=== PATIENT | male | born 1990 | race Caucasian/White ===

== ENCOUNTER 2020-09-14 11:07 | Day surgery (SDC) | payer OTHER ==
[2020-09-12 10:11] VITALS: BMI 28.6
[~2020-09-14 11:07] MED LIST: LACTATED RINGERS 1,000 ML IV SCH
[2020-09-14 11:33] VITALS: RESP 16; TEMP 98.3
[2020-09-14] MEDS ORDERED: PROPOFOL 10 MG/ML 20 ML VIAL IV ONE (12:28)
--- NOTE | 2020-09-14 13:00 | P.PCN ---
Date of Procedure: 09/14/20 Description of Procedure: BRIEF HISTORY: Patient is a 29-year-old male seen for outpatient colonoscopy for evaluation of change in bowel habits. Patient been seen in the GI clinic with a constellation of symptoms including frequent lower abdominal and pelvic pain described as sharp and cramping. Occasionally the pain will be triggered by passing flatus or bowel movements but sometimes is improved with bowel movements and has happened in the absence of these events even while he was driving his car. He reports that there is been a change in the quality of his bowel movements. PROCEDURE PERFORMED: Colonoscopy with biopsy. PREOPERATIVE DIAGNOSIS: Change in bowel habits, altered bowel function. ESTIMATED BLOOD LOSS: Minimal. IV sedation per Anesthesia. PROCEDURE: After informed consent was obtained, the patient, was brought into the endoscopy unit. IV sedation was administered by Anesthesia under continuous monitoring. Digital rectal examination was normal, external skin tag noted on perianal evaluation was definitive fissure seen. Initially the Olympus CF-190 flexible v ideo colonoscope was then inserted in the rectum, gradually advanced into the cecum without any difficulty. Careful examination was performed as the scope was gradually being withdrawn. Ileocecal valve and the appendiceal orifice were visualized and appeared normal. Prep was excellent. Mucosa of the cecum, ascending colon, transverse colon, descending colon, sigmoid colon, and rectum appeared normal, and the terminal ileum appeared normal., With random biopsies taken of the terminal ileum, right colon and left colon. Diminutive 1 mm ascending colon polyp removed with cold forcep polypectomy Retroflexion was performed in the rectum and no lesions were seen. The patient tolerated the procedure well. IMPRESSION: Normal-appearing colon from rectum to cecum and normal appearing terminal ileum, with random biopsies of the right colon, left colon and terminal ileum. Diminutive ascending colon polyp removed with cold forcep polypectomy. RECOMMENDATIONS: Findings of this examination were discussed with the patient .and his family. Okay to resume the medication. continue current medical management. Follow-up in the GI clinic as scheduled. Await pathology from biopsies and polypectomy. Further recommendations pending pathology and computed tomography scan scheduled for tomorrow.
[2020-09-14 13:24] VITALS: BP 110/56; PULSE 75
== END 2020-09-14 13:37 | disposition home or self-care (01) ==
LOC: ORWHC2ENDO 11:07
PROVIDERS: ATTEND Internal Medicine
DX: D12.2 Benign neoplasm of ascending colon (principal); R19.4 Change in bowel habit; R10.30 Lower abdominal pain, unspecified; Z79.899 Other long term (current) drug therapy; Z88.0 Allergy status to penicillin; Z91.040 Latex allergy status
CPT/HCPCS: 88305; 45380; J2704

== ENCOUNTER → 2020-09-15 | Outpatient (CLI) | payer OTHER ==
--- NOTE | 2020-09-15 15:31 | CT ---
EXAMINATION TYPE: CT abdomen pelvis wo/w con DATE OF EXAM: 09/15/2020 COMPARISON: None HISTORY: Pelvic and hip pain x 3 months with changes in bowel habits. CT DLP: 952.6 mGycm CONTRAST: CT scan of the abdomen and pelvis is performed with Oral Contrast and without and with IV Contrast, p atient injected with 100 mL of Isovue 300. FINDINGS: LUNG BASES-: No visible nodule. No infiltrate. LIVER/GB: No calcified gallstones. No space occupying hepatic lesion. Biliary tree is of normal ca liber. PANCREAS: No inflammation. No distinct mass. SPLEEN: No splenic enlargement. No lesion seen. ADRENALS: No nodule. No thickening. KIDNEYS/BLADDER: No hydronephrosis. No nephrolithiasis. No distinct renal mass. Urinary bladder g rossly unremarkable. BOWEL: Normal appendix. Normal bowel caliber. No inflammation. GENITAL ORGANS: No gross abnormality. LYMPH NODES: No greater than 1cm abdominal or pelvic lymph nodes are appreciated. AORTA: No significant abnormality. OSSEOUS STRUCTURES: No significant abnormality is seen. OTHER: No significant additional abnormality is seen. IMPRESSION: 1. No distinct abnormality identified to account for the patient's symptoms.
== END | disposition home or self-care (01) ==
LOC: RADCTMAIN 13:13
PROVIDERS: ATTEND Internal Medicine
DX: R10.30 Lower abdominal pain, unspecified (principal)
CPT/HCPCS: 74178; Q9967 ×2

== ENCOUNTER → 2020-09-26 | Outpatient (CLI) | payer OTHER ==
--- NOTE | 2020-09-26 16:32 | XR ---
EXAMINATION TYPE: XR lumbar spine 2 or 3V DATE OF EXAM: 09/26/2020 CLINICAL HISTORY: Back pain. Pain in bilateral hips radiating into back and legs. TECHNIQUE: Frontal and lateral images of the lumbar spine are obtained. COMPARISON: 09/15/2020 CT abdomen pelvis FINDINGS: There are 5 lumbar type vertebral bodies identified. The lumbar spine shows satisfactory alignment without evidence of acute fracture or dislocation. No spondylolisthesis. Vertebral body hei ghts and disk space heights are within normal limits. The overlying soft tissue appears unremarkabl e. IMPRESSION: No acute fracture or dislocation is seen in the lumbar spine.
--- NOTE | 2020-09-26 16:36 | XR ---
EXAMINATION TYPE: XR thoracic spine complete DATE OF EXAM: 09/26/2020 CLINICAL HISTORY: Back pain. TECHNIQUE: Frontal, lateral, and swimmer's view of thoracic spine are obtained. COMPARISON: None. FINDINGS: Thoracic spine show satisfactory alignment without evidence of acute fracture or dislocatio n. Vertebral body heights and disc space heights are preserved. Visualized ribs are unremarkable. IMPRESSION: No acute fracture or dislocation is seen in the thoracic spine.
== END | disposition home or self-care (01) ==
LOC: RADXRMAIN 15:04
PROVIDERS: ATTEND Nurse Practitioner Family
DX: M54.9 Dorsalgia, unspecified (principal)
CPT/HCPCS: 72072; 72100

== ENCOUNTER → 2020-10-13 | Outpatient (CLI) | payer OTHER ==
--- NOTE | 2020-10-13 11:02 | MR ---
EXAMINATION TYPE: MR lumbar spine wo/w con DATE OF EXAM: 10/13/2020 COMPARISON: Plain film 09/26/2020, CT abdomen pelvis dated 09/15/2020 HISTORY: Back pain for 4 months. Patient indicates pain radiating into buttocks and thighs bilaterall y. TECHNIQUE: Multiplanar, multisequence images of the lumbar spine were acquired utilizing 7.5 mL intravenous Gada vist gadolinium contrast. L1-L2: Normal disc appearance without desiccation. No herniation, protrusion or disc bulging. No ca nal stenosis is present. Foramina are patent bilaterally. L2-L3: Normal disc appearance without desiccation. No herniation, protrusion or disc bulging. No ca nal stenosis is present. Foramina are patent bilaterally. L3-L4: Normal disc appearance without desiccation. No herniation, protrusion or disc bulging. No ca nal stenosis is present. Foramina are patent bilaterally. L4-L5: Normal disc appearance without desiccation. No herniation, protrusion or disc bulging. No ca nal stenosis is present. Foramina are patent bilaterally. L5-S1: Normal disc appearance without desiccation. No herniation, protrusion or disc bulging. No ca nal stenosis is present. Foramina are patent bilaterally. Lumbar segments are intact. No paraspinal masses are identified. Conus medullaris has a normal appe arance. Lumbar vertebral bodies show preserved height and alignment, bone marrow signal. No abnormal enhancement following contrast administration. IMPRESSION: Normal pre and postcontrast lumbar spine MRI
== END | disposition home or self-care (01) ==
LOC: RADMRIMAIN 08:33
PROVIDERS: ATTEND Nurse Practitioner Family
DX: M54.9 Dorsalgia, unspecified (principal)
CPT/HCPCS: 72158; A9585

== ENCOUNTER → 2021-03-16 | Outpatient (CLI) | payer OTHER ==
--- NOTE | 2021-03-16 14:23 | MR ---
EXAMINATION TYPE: MR knee LT wo con DATE OF EXAM: 03/16/2021 COMPARISON: None HISTORY: L knee pain TECHNIQUE: Multiplanar, multisequence imaging of the left knee is performed without IV contrast. FINDINGS: MEDIAL MENISCUS: Anterior and posterior horns are intact without tear. LATERAL MENISCUS: Anterior and posterior horns are intact without tear. CRUCIATE LIGAMENTS: The ACL is not visualized and is compatible with nonacute rupture. PCL is intact. COLLATERAL LIGAMENTS: The medial collateral ligament and lateral collateral ligament complex are inta ct and unremarkable. EXTENSOR MECHANISM: Visualized quadriceps and patellar tendons are intact. EFFUSION: No significant suprapatellar joint effusion. POPLITEAL CYST: No popliteal/roman cyst. TRICOMPARTMENT SPACES: Intact CARTILAGE: Intact BONE MARROW SIGNAL: No focal abnormal marrow signal is appreciated. OTHER: No additional significant abnormality is appreciated. IMPRESSION: Nonacute rupture of the ACL.
== END | disposition home or self-care (01) ==
LOC: RADMRIMAIN 12:44
PROVIDERS: ATTEND Orthopaedic Surgery
DX: S83.512A Sprain of anterior cruciate ligament of left knee, initial encounter (principal); X58.XXXA Exposure to other specified factors, initial encounter

== ENCOUNTER → 2021-04-26 | Outpatient (CLI) | payer OTHER ==
[2021-04-26 13:21] LABS: Basophils % (A) 0 %; Eosinophils # (A) 0.1 k/uL (0-0.7); Eosinophils % (A) 1 %; HCT 44.9 % (39.0-53.0); HGB 15.5 gm/dL (13.0-17.5); Lymphocytes # (A) 1.4 k/uL (1.0-4.8); Lymphocytes % (A) 22 %; MCH 29.6 pg (25.0-35.0); MCHC 34.5 g/dL (31.0-37.0); MCV 85.7 fL (80.0-100.0); Mean Platelet Volume 6.9; Monocytes # (A) 0.4 k/uL (0-1.0); Monocytes % (A) 7 %; Neutrophils # (A) 4.4 k/uL (1.3-7.7); Neutrophils % (A) 68 %; Platelet Count 235 k/uL (150-450); RBC 5.24 m/uL (4.30-5.90); RDW 11.9 % (11.5-15.5); WBC 6.5 k/uL (3.8-10.6)
[2021-04-26 13:23] LABS: Potassium 4.3 mmol/L (3.5-5.1)
== END | disposition home or self-care (01) ==
LOC: LABPAT 11:20
PROVIDERS: ATTEND Orthopaedic Surgery
DX: Z01.812 Encounter for preprocedural laboratory examination (principal); S83.511A Sprain of anterior cruciate ligament of right knee, initial encounter; X58.XXXA Exposure to other specified factors, initial encounter
CPT/HCPCS: 36415; 80051; 85025

== ENCOUNTER 2021-05-03 08:00 | Day surgery (SDC) | payer OTHER ==
[2021-05-02 09:21] VITALS: BMI 25.9
--- NOTE | 2021-05-02 17:54 | HP ---
HISTORY AND PHYSICAL DATE OF SURGERY: 05/03/2021 Kannan Sterling is a 30-year-old patient seen with left knee pain and instability, history of ACL tear. We discussed options. He elected to proceed with left knee arthroscopy, including allograft ACL reconstruction. Consent was obtained. PAST MEDICAL HISTORY: Noncontributory. PAST SURGICAL HISTORY: Colonoscopy. DAILY MEDICATIONS: None. ALLERGIES: PENICILLIN. SOCIAL HISTORY: He denies tobacco use. PHYSICAL EVALUATION OF THE LEFT KNEE: Range of motion is zero to 130. Tenderness, medial joint line. Positive medial Caitlyn's. Plus 2/3 Colten. No endpoint. Positive pivot shift. Collateral ligaments are stable. Distal neurovascular exam intact. Radiographs of the left knee revealed no osseous abnormality. MRI left knee revealed a complete ACL tear. IMPRESSION: Internal derangement of left knee with ACL tear. PLAN: Left knee arthroscopy with allograft ACL reconstruction and debridement. MMODL / IJN: [id number] /
[~2021-05-03 08:00] MED LIST changes: +CLINDAMYCIN 900 MG in DEXTROSE 5% IN WATER 50 ML IVPB PRN; +DEXAMETHASONE SOD PHOSPHATE 4 MG/ML 1 ML VIAL IV ONE; +LIDOCAINE 1% (10MG/ML) FOR IV START INTRADERMA PRN; +METOCLOPRAMIDE 5 MG/ML 2 ML VIAL IVP PRN; +MIDAZOLAM 2 MG/2 ML VIAL IV PRN; +ONDANSETRON 4 MG/2 ML VIAL IVP ONE
[2021-05-03 08:26] VITALS: TEMP 98.1
[2021-05-03] MEDS ORDERED: LIDOCAINE 1% INJ 10MG/ML (20 ML MDV) ONE (09:05)
[2021-05-03] MEDS ORDERED: SUCCINYLCHOLINE CHLORIDE 100 MG/5 ML SYR IV ONE (09:05)
[2021-05-03] MEDS ORDERED: LABETALOL 5 MG/ML VIAL MDV ONE (09:05)
[2021-05-03] MEDS ORDERED: ROCURONIUM 10 MG/ML (5 ML VIAL) IV ONE (09:05)
[2021-05-03] MEDS ORDERED: MIDAZOLAM 2 MG/2 ML VIAL ONE (09:05)
[2021-05-03] MEDS ORDERED: NEOSTIGMINE 1 MG/ML 10 ML VIAL ONE (09:05)
[2021-05-03] MEDS ORDERED: .fentaNYL (PF) 50 MCG/ML 2 ML AMP ONE (09:05)
[2021-05-03] MEDS ORDERED: PROPOFOL 10 MG/ML 20 ML VIAL IV ONE (09:05)
[2021-05-03] MEDS ORDERED: GLYCOPYRROLATE 0.2 MG/ML 2 ML VIAL ONE (09:05)
[2021-05-03] MEDS ORDERED: BUPIVACAINE (PF) 0.25% 30 ML VIAL SQ ONE ×2 (09:50→10:57)
[2021-05-03] MEDS ORDERED: LACTATED RINGERS 1,000 ML IV ONE (10:57)
--- NOTE | 2021-05-03 11:25 | P.OP ---
Date of Procedure: 05/03/21 Preoperative Diagnosis: Internal derangement left knee Postoperative Diagnosis: 1. ACL tear left knee 2. Medial meniscal tear left knee 3. Reactive synovitis medial, lateral and suprapatellar compartments left knee Procedure(s) Performed: 1. Left knee arthroscopy with allograft ACL reconstruction 2. Left knee arthroscopy with partial medial meniscectomy 3. Left knee arthroscopy with partial synovectomy medial, lateral and suprapatellar compartments Implants: 14.75 Arthrex a lock anchor 2- Arthrex Endobutton Anesthesia: NILE local Surgeon: Wilver Gray Finished Cigar Maker #1: Reno Bedoya Estimated Blood Loss (ml): 15 Pathology: none sent Condition: stable Disposition: PACU Indications for Procedure: 30-year-old patient seen with progressive left knee pain/instability. We discussed treatment options. He elected to proceed with arthroscopy to include allograft ACL reconstruction. Operative Findings: See description of procedure Description of Procedure: Patient was taken to the operative suite. Patient underwent a general anesthetic by the department of anesthesia. Patient was given preoperative antibiotics. The left lower extremity was placed in a well-padded arthroscopic leg cooper. The left leg was prepped and draped in the normal sterile orthopedic fashion. A lateral parapatellar and suprapatellar incision was made. Trochars were inserted. Arthroscopy was initiated. Suprapatellar pouch revealed diffuse thick reactive synovitis. The patellofemoral joint appeared to articulate congruently. There was no significant chondromalacia present.. The scope was guided into the medial gutter. No loose bodies or plica were identified. The scope was then guided into the medial compartment. A medial parapatellar incision was made. Trocar inserted followed by probe. There was a small radial tear involving the anterior horn/midbody medial meniscus. There was thick reactive synovitis. There was no chondromalacia. I performed a pa rtial medial meniscectomy getting down to stable meniscal tissue. I performed a partial synovectomy decompressing the reactive synovitis. The shaver was removed. The residual meniscus was stable. There was good decompression of the synovitis. Scope and probe were then guided into the intercondylar notch. There was complete absence of the anterior cruciate ligament. The posterior cruciate ligament was intact. At this point the graft was opened on the back field. Anderson GOEL began preparing that graft for implantation. The scope and probe were then guided into lateral compartment. The lateral meniscus was probed and found to be stable. There was no chondromalacia. There was thick reactive synovitis anteriorly. I introduced a motorized shaver and I performed a partial synovectomy. The shaver was removed. There was good decompression of the synovitis. I now guided the scope back into the intercondylar notch. I performed a notchplasty. I debrided some scar tissue in the area. With the assistance of Anderson GOEL I now created a femoral tunnel. I now with the assistance of Anderson GOEL created a tibial tunnel. Once it was completed the graft was now brought to the operative field. I now shuttled the femoral side the graft into the femoral tunnel visually flipping the Endobutton and then I shuttled the graft into the bone tunnel. We now with this is Anderson GOEL shuttle the tibial side of the graft into the tibial tunnel. We now put stress through the graft and noted good positioning of the graft. I noted leg into full extension and I secured the tibial side the graft with a Endobutton and then I backed up our internal brace which was incorporated into the graft with a 4.75 Arthrex swivel lock anchor. All residual sutures were clipped. We noted good fixation of both the button and the internal brace via the Arthrex a lock. We now kept the knee into full extension and I held that there while Anderson GOEL tensioned the femoral side the graft appropriately. We now evaluated the ACL graft appeared be very well-positioned with good stability intraoperatively. I now took one look into the medial lateral compartments and noted no residual debris there. The scope was in guided back into the suprapatellar compartment. I introduced a motorized shaver into the super patellar compartment and debrided some residual bone fragments and performed a partial synovectomy and compressed thick reactive synovitis. I now took one more look around the entire knee, no residual debris. The joint was infiltrated with .25% Marcaine. we repaired the portal sites and the mini medial tibial incision utilizing nylon suture. Sterile dressings were applied. The patient was placed into a GAVIN hose. No tourniquet was utilized. I placed the left lower extremity into a knee immobilizer. The patient was awakened, transferred to a bed and taken to recovery stable satisfactory condition. Anderson GOEL assisted with this procedure.
[2021-05-03 11:30] VITALS: RESP 16
[2021-05-03] MEDS: HYDROmorphone 0.5 MG/0.5 ML SYRINGE IVP PRN ×2 (11:32→11:50)
[2021-05-03] MEDS ORDERED: KETOROLAC 30 MG/ML 1 ML VIAL ONE (11:36)
[2021-05-03] MEDS ORDERED: KETOROLAC 15 MG/ML 1 ML VIAL IVP ONE (11:38)
[2021-05-03] MEDS ORDERED: HYDROcodone/APAP 7.5-325MG 1 EACH TAB PO ONE (12:16)
[2021-05-03] MEDS ORDERED: HYDROcodone/APAP 7.5-325MG 1 EACH TAB ONE (12:16)
[2021-05-03 12:37] VITALS: BP 108/63; PULSE 59
== END 2021-05-03 13:19 | disposition home or self-care (01) ==
LOC: OR 08:00
PROVIDERS: ATTEND Orthopaedic Surgery
DX: M23.612 Other spontaneous disruption of anterior cruciate ligament of left knee (principal); M23.204 Derangement of unspecified medial meniscus due to old tear or injury, left knee; M65.862 Other synovitis and tenosynovitis, left lower leg; Z98.890 Other specified postprocedural states; Z88.0 Allergy status to penicillin; Z91.040 Latex allergy status
CPT/HCPCS: 29881; 29888; C1713 ×4; C1762; J2250; J1100; J2710; J2405; J2001; J3010; J1885; J0330; J2704; J1170

== ENCOUNTER 2021-07-06 10:23 | Emergency (ER) | payer OTHER ==
[2021-07-06 10:36] VITALS: TEMP 98.5
--- NOTE | 2021-07-06 11:53 | ED ---
General Adult HPI - General Chief complaint: Abdominal Pain Stated complaint: abd pain Time Seen by Provider: 07/06/21 10:35 Source: patient, RN notes reviewed, old records reviewed Mode of arrival: ambulatory Limitations: no limitations - History of Present Illness Initial comments: This is a 30-year-old male who presents emergency Department complaining of rectal pain for one year. Patient states it comes and goes and usually starts with the bowel movement. Patient states when it occurs the pain is excruciating. Patient states she's been followed up multiple times with primary medical care doctor and had a colonoscopy throughout the ER and they have not found a reason. Patient denies any bumps or lumps. Patient states the pain is not changed over that year it just gets worse at times. Patient denies diarrhea. Patient denies being constipated Patient states his caliber of stool is extremely small so he does have to bear down to have a bowel movement. Patient denies any abdominal pain patient denies any fever chills. Patient denies any injury. - Related Data Home Medications Medication Instructions Recorded Confirmed Docusate [Colace] 100 mg PO HS PRN 05/02/21 05/03/21 Previous Rx's Medication Instructions Recorded HYDROcodone/APAP 7.5-325MG [[place] 1 each PO Q6HR PRN #21 tab 05/03/21 7.5] Ibuprofen 800 mg PO Q8H PRN #40 tab 05/03/21 Allergies Allergy/AdvReac Type Severity Reaction Status Date / Time Penicillins Allergy Severe Anaphylaxis Verified 07/06/21 10:36 latex Allergy Unknown Rash/Hives Verified 07/06/21 10:36 Review of Systems ROS Statement: Those systems with pertinent positive or pertinent negative responses have been documented in the HPI. ROS Other: All systems not noted in ROS Statement are negative. Past Medical History Past Medical History: No Reported History Additional Past Medical History / Comment(s): rectal pain, loose stools. History of Any Multi-Drug Resistant Organisms: None Reported Past Surgical History: No Surgical Hx Reported Additional Past Anesthesia/Blood Transfusion Reaction / Comment(s): no anesthesia hx Past Psychological History: No Psychological Hx Reported Smoking Status: Former smoker Past Alcohol Use History: None Reported Past Drug Use History: Marijuana - Past Family History Mother Family Medical History: No Reported History General Exam - General Exam Comments Initial Comments: GENERAL Patient is well-developed and well-nourished. Patient is in no acute distress. EYES Patient's pupils are equal and round. Extraocular motion is intact SKIN Unremarkable NEURO The patient is alert and oriented 3 PYSCH Patient has normal interpersonal interactions. Normal rectal exam was done at this time since he was not having pain currently. Limitations: no limitations Course Vital Signs 07/06/21 10:34 Temperature 98.5 F Pulse Rate 85 Respiratory 20 Rate Blood Pressure 124/68 O2 Sat by Pulse 99 Oximetry Disposition Clinical Impression: Chronic rectal pain Disposition: HOME SELF-CARE Instructions (If sedation given, give patient instructions): Rectal Pain (ED) Additional Instructions: Patient should take Motrin 600 when necessary for pain. Patient states that her fiber twice a day. Patient should follow-up with colorectal specialist and possibly the pain clinic. Is patient prescribed a controlled substance at d/c from ED?: No Referrals: Lily Tovar MD [Primary Care Provider] - 1-2 days Time of Disposition: 11:53
[2021-07-06 12:05] VITALS: BP 153/71; PULSE 72; RESP 18
== END 2021-07-06 12:11 | disposition home or self-care (01) ==
LOC: EC 10:23
DX: K62.89 Other specified diseases of anus and rectum (principal); Z87.891 Personal history of nicotine dependence; Z88.0 Allergy status to penicillin; Z91.040 Latex allergy status
CPT/HCPCS: 99283

== ENCOUNTER 2021-07-09 20:24 | Emergency (ER) | payer OTHER ==
[2021-07-09 21:05] VITALS: TEMP 98.8
[2021-07-10 00:48] LABS: Basophils # (A) 0.1 k/uL (0-0.2); Basophils % (A) 0 %; Eosinophils # (A) 0.1 k/uL (0-0.7); Eosinophils % (A) 1 %; HCT 43.5 % (39.0-53.0); HGB 14.8 gm/dL (13.0-17.5); Lymphocytes # (A) 2.1 k/uL (1.0-4.8); Lymphocytes % (A) 18 %; MCH 29.9 pg (25.0-35.0); MCHC 34.1 g/dL (31.0-37.0); MCV 87.7 fL (80.0-100.0); Mean Platelet Volume 6.6; Monocytes # (A) 0.9 k/uL (0-1.0); Monocytes % (A) 7 %; Neutrophils # (A) 8.7 k/uL (1.3-7.7); Neutrophils % (A) 72 %; Platelet Count 243 k/uL (150-450); RBC 4.96 m/uL (4.30-5.90); RDW 11.9 % (11.5-15.5); WBC 12.1 k/uL (3.8-10.6)
--- NOTE | 2021-07-10 01:13 | CT ---
EXAMINATION TYPE: CT pelvis w con DATE OF EXAM: 07/10/2021 COMPARISON: 09/15/2020 HISTORY: pain CT DLP: 678.1 mGycm Automated exposure control for dose reduction was used. CONTRAST: Performed with IV Contrast, patient injected with 100 mL of Isovue 300. Images obtained from the iliac crest to the floor of the pelvis with IV contrast. The appendix appears normal. There is no free fluid in the pelvis. Bladder distends smoothly. There i s no evidence of pelvic mass. Prostate appears normal. There is some mild thickening on the right eusebio e of the anus that could be inflammatory process. No discrete fluid collection. There is no inguinal hernia. There is no pelvic lymphadenopathy. The bony pelvis is intact. Hip joint s are intact. Sacroiliac joints appear normal. IMPRESSION: Mild right-sided perianal thickening consistent with phlegmon or inflammatory process. No abscess. Th is appears new compared to old exam.
[2021-07-10 01:14] LABS: African American GFR (CKD) >90 (>60 ml/min/1.73 sqM); Anion Gap 11 mmol/L; Blood Urea Nitrogen 16 mg/dL (9-20); Calcium 9.9 mg/dL (8.4-10.2); Carbon Dioxide 25 mmol/L (22-30); Chloride 101 mmol/L (98-107); Glucose 97 mg/dL (74-99); Non-African American GFR(CKD) >90 (>60 ml/min/1.73 sqM); Potassium 3.9 mmol/L (3.5-5.1); Sodium 137 mmol/L (137-145)
[2021-07-10] MEDS ORDERED: CLINDAMYCIN 150 MG CAP PO STA (01:49)
[2021-07-10 02:10] VITALS: BP 127/63; PULSE 123; RESP 18
--- NOTE | 2021-07-10 03:03 | ED ---
General Adult HPI - General Chief complaint: Recheck/Abnormal Lab/Rx Stated complaint: Abd. Pain Time Seen by Provider: 07/09/21 23:30 Source: patient Mode of arrival: wheelchair Limitations: no limitations - History of Present Illness Initial comments: 's patient is a 30-year-old man who presents with complaint he is having what he is describing as severe, sharp, rectal pains. The patient states this is been going on intermittently back to a year ago or so. He is not identify any inciting trauma. The patient does state that he was seen here 3-4 days ago, they were not able to find the problem, and he was sent home to follow with a colorectal surgeon. The patient notes that since leaving he has developed some swelling adjacent to the anus. No systemic symptoms, no fever or chills. No palpitations, chest pain or dyspnea. The patient denies abdominal pains. He does note that he has developed a small swelling in the right groin area. The patient does state that he tried taking a Tuttle that he had left over from a knee surgery which may have helped a tiny bit but he still noticed the pain even with the medication. Onset/Timin -: year(s) Radiation: non-radiation Quality: sharp Consistency: intermittent Improves with: none Worsens with: other (Sitting) Associated Symptoms: denies other symptoms Treatments Prior to Arrival: other (Tuttle) - Related Data Home Medications Medication Instructions Recorded Confirmed Docusate [Colace] 100 mg PO HS PRN 05/02/21 05/03/21 Previous Rx's Medication Instructions Recorded HYDROcodone/APAP 7.5-325MG [[place] 1 each PO Q6HR PRN #21 tab 05/03/21 7.5] Ibuprofen 800 mg PO Q8H PRN #40 tab 05/03/21 Clindamycin [Cleocin] 300 mg PO Q6H #28 capsule 07/10/21 Nitroglycerin Oint [Nitro-Bid Oint] 0.5 inch TRANSDERM TID #14 packet 07/10/21 Allergies Allergy/AdvReac Type Severity Reaction Status Date / Time Penicillins Allergy Severe Anaphylaxis Verified 07/09/21 21:05 latex Allergy Unknown Rash/Hives Verified 07/09/21 21:05 Review of Systems ROS Statement: Those systems with pertinent positive or pertinent negative responses have been documented in the HPI. ROS Other: All systems not noted in ROS Statement are negative. Constitutional: Denies: fever, chills Respiratory: Denies: cough, dyspnea Cardiovascular: Denies: chest pain, palpitations, syncope Gastrointestinal: Denies: abdominal pain, nausea, vomiting, diarrhea, constipation Genitourinary: Denies: dysuria, hematuria, testicular pain, testicular mass Musculoskeletal: Denies: back pain Skin: Denies: rash Neurological: Denies: headache Past Medical History Past Medical History: No Reported History Additional Past Medical History / Comment(s): rectal pain, loose stools. History of Any Multi-Drug Resistant Organisms: None Reported Past Surgical History: No Surgical Hx Reported Additional Past Anesthesia/Blood Transfusion Reaction / Comment(s): no anesthesia hx Past Psychological History: No Psychological Hx Reported Smoking Status: Former smoker Past Alcohol Use History: None Reported Past Drug Use History: Marijuana - Past Family History Mother Family Medical History: No Reported History General Exam Limitations: no limitations General appearance: alert, in no apparent distress Head exam: Present: atraumatic, normocephalic Respiratory exam: Present: normal lung sounds bilaterally. Absent: respiratory distress, wheezes, rales, rhonchi, stridor Cardiovascular Exam: Present: regular rate, normal rhythm, normal heart sounds. Absent: systolic murmur, diastolic murmur, rubs, gallop GI/Abdominal exam: Present: soft. Absent: distended, tenderness, guarding, rebound, rigid, mass Rectal exam: Present: other (Onto the right of the anus there is an area of induration with erythema and warmth consistent with possible early abscess versus cellulitis.) Extremities exam: Present: normal inspection, normal capillary refill. Absent: pedal edema, calf tenderness Back exam: Present: normal inspection Neurological exam: Present: alert, normal gait Skin exam: Present: warm, dry, erythema, other (See above). Absent: intact Course Vital Signs 07/09/21 07/10/21 21:00 00:33 Temperature 98.8 F Pulse Rate 100 115 H Respiratory 18 20 Rate Blood Pressure 125/72 151/77 O2 Sat by Pulse 100 99 Oximetry Medical Decision Making - Medical Decision Making This patient is 30-year-old man with severe intermittent rectal pain going back a year. Discussed with the patient that there is currently an infection which we will treat and have him follow with the colorectal specialist. No identifiab le abscess currently. Discussed that I do not find an etiology for the chronic pain but we must clear up the infectious problem is going on. Discussed appropriate further care as well as the return parameters - Lab Data Result diagrams: 07/10/21 00:21 07/10/21 00:21 Lab Results 07/10/21 07/10/21 Range/Units 00:21 00:21 WBC 12.1 H (3.8-10.6) k/uL RBC 4.96 (4.30-5.90) m/uL Hgb 14.8 (13.0-17.5) gm/dL Hct 43.5 (39.0-53.0) % MCV 87.7 (80.0-100.0) fL MCH 29.9 (25.0-35.0) pg MCHC 34.1 (31.0-37.0) g/dL RDW 11.9 (11.5-15.5) % Plt Count 243 (150-450) k/uL MPV 6.6 Neutrophils % 72 % Lymphocytes % 18 % Monocytes % 7 % Eosinophils % 1 % Basophils % 0 % Neutrophils # 8.7 H (1.3-7.7) k/uL Lymphocytes # 2.1 (1.0-4.8) k/uL Monocytes # 0.9 (0-1.0) k/uL Eosinophils # 0.1 (0-0.7) k/uL Basophils # 0.1 (0-0.2) k/uL Sodium 137 (137-145) mmol/L Potassium 3.9 (3.5-5.1) mmol/L Chloride 101 (98-107) mmol/L Carbon Dioxide 25 (22-30) mmol/L Anion Gap 11 mmol/L BUN 16 (9-20) mg/dL Creatinine 0.82 (0.66-1.25) mg/dL Est GFR (CKD-EPI)AfAm >90 (>60 ml/min/1.73 sqM) Est GFR (CKD-EPI)NonAf >90 (>60 ml/min/1.73 sqM) Glucose 97 (74-99) mg/dL Calcium 9.9 (8.4-10.2) mg/dL Disposition Clinical Impression: Chronic rectal pain, Cellulitis and abscess of buttock Disposition: HOME SELF-CARE Condition: Good Instructions (If sedation given, give patient instructions): Cellulitis (DC) Prescriptions: Clindamycin [Cleocin] 300 mg PO Q6H #28 capsule Nitroglycerin Oint [Nitro-Bid Oint] 0.5 inch TRANSDERM TID #14 packet Is patient prescribed a controlled substance at d/c from ED?: No Referrals: iLly Tovar MD [Primary Care Provider] - 1-2 days
== END 2021-07-10 02:24 | disposition home or self-care (01) ==
LOC: EC 20:24
DX: L03.317 Cellulitis of buttock (principal); K62.89 Other specified diseases of anus and rectum; Z87.891 Personal history of nicotine dependence; Z88.0 Allergy status to penicillin; Z91.040 Latex allergy status
CPT/HCPCS: 36415; 80048; 85025; 72193; 99284; Q9967